=== PATIENT | female | born 1980 | race Caucasian/White ===

== ENCOUNTER → 2017-09-24 | Outpatient (CLI) | payer BC ==
[~2017-09-24] MED LIST: NO ROUTINE MEDS
== END ==
LOC: SPU 10:01
PROVIDERS: ATTEND Student in an Organized Health Care Education/Training Program
DX: C73 Malignant neoplasm of thyroid gland (principal); E89.0 Postprocedural hypothyroidism
CPT/HCPCS: 84439; 84443

== ENCOUNTER 2017-11-09 14:07 | Outpatient (RCR) | payer BC ==
--- NOTE | 2017-11-05 15:59 | RADIOLOGY IMAGING REPORT ---
FACILITY: [facility] PATIENT NAME: Mary Hardin : 1980 MR: [id number] V: [id number] EXAM DATE: ORDERING PHYSICIAN: MYRNA CALDWELL TECHNOLOGIST: Location: [facility] Patient: Mary Hardin : 1980 Visit/Account:[id number] Date of Sevice: 11/05/2017 EXAMINATION: Thyroid bed and neck ultrasound 11/05/2017 1:20 PM History: Thyroidectomy for papillary carcinoma. Iodine-131 radiation March 2017. COMPARISON STUDIES: None available FINDINGS: Thyroid bed: Right - negative Left - negative Largest cervical nodes: Right - level 1 lymph node 1.1 x 1.2 x 0.6 cm in level 2 lymph node 1.5 x 2.0 x 0.8 cm, each wi th a fatty hilus. Additional smaller lymph nodes elsewhere. Left - level 2 lymph node 1.9 x 1.1 x 1.6 cm with fatty hilus. 1.3 x 0.7 x 0.6 cm level 6 lymp h node. IMPRESSION: Multiple cervical lymph nodes without a pathologic appearance. Report Dictated By: Ric Ascencio MD at 11/05/2017 3:51 PM Report E-Signed By: Ric Ascencio MD at 11/05/2017 3:55 PM WSN:[email or web address]
== END 2017-11-11 13:27 | disposition home or self-care (01) ==
LOC: RAON 14:07
PROVIDERS: ATTEND Radiology Radiation Oncology
DX: Z85.850 Personal history of malignant neoplasm of thyroid (principal); E89.0 Postprocedural hypothyroidism; Q79.3 Gastroschisis; Z87.891 Personal history of nicotine dependence
CPT/HCPCS: 76536; 84432; 84439; 84443; 86800

== ENCOUNTER → 2017-12-01 | Outpatient (CLI) | payer BC | LOC: SPU 07:34 | PROVIDERS: ATTEND Student in an Organized Health Care Education/Training Program | DX: C73 Malignant neoplasm of thyroid gland (principal); E89.0 Postprocedural hypothyroidism | CPT/HCPCS: 84443 ==

== ENCOUNTER → 2018-10-07 | Outpatient (CLI) | payer BC | LOC: LAB 11:53 | PROVIDERS: ATTEND Student in an Organized Health Care Education/Training Program | DX: E89.0 Postprocedural hypothyroidism (principal) | CPT/HCPCS: 36415; 84439; 84443 ==

== ENCOUNTER 2018-11-30 15:24 | Observation (INO) | payer BC ==
[~2018-11-30] VITALS: Ht 175.3 cm; Wt 93.4 kg
[~2018-11-30 15:24] MED LIST changes: -BACI1CAP PO; -LEVO175T38 PO; -PREN-127 PO
[2018-11-30] MEDS ORDERED: PREN-127 PO (15:30)
[2018-11-30] MEDS ORDERED: LEVO175T38 PO (15:30)
[2018-11-30] MEDS ORDERED: NS(*) 0.9% 1000 ML BAG 1,000 ML IV ONE (15:38)
[2018-11-30] MEDS ORDERED: ONDANSETRON 4 MG/2 ML VIAL IVP ONE (15:40)
[2018-11-30 15:46] LABS: PLATELET COUNT, AUTOMATED 356 K/uL (150-450)
--- NOTE | 2018-11-30 15:51 | ER Report ---
History and Physical Time Seen By MD: 15:35 Hx. of Stated Complaint: EPIGASTRIC PAIN, NAUSEA HPI/ROS CHIEF COMPLAINT: Dental pain HISTORY OF PRESENT ILLNESS: 38-year-old female with intermittent abdominal pain primarily epigastric or right upper quadrant after eating meals comes and goes last 2 or 3 days becoming more frequent dull and aching occasionally sharp and stabbing no burning in her throat no cough fever chills no nausea vomiting no additional complaints noted patient seen by primary care notice some abnormal LFTs and center here for further evaluation patient still has her gallbladder and no surgical history REVIEW OF SYSTEMS: Respiratory: No cough, no dyspnea. Cardiovascular: No chest pain, no palpitations. Gastrointestinal: Abdominal pain right upper quadrant epigastric no vomiting Musculoskeletal: No back pain. Remainder of the 14 system rev: Yes Allergies: Coded Allergies: Cephalexin (Verified Allergy, Intermediate, RASH, 01/06/11) Home Meds Reported Medications Vits W-Ca,Fe,Fa(<1MG) ( VITAMINS) 1 Each Tablet, 1 EACH PO DAILY, TAB 11/30/18 Levothyroxine Sodium (SYNTHROID) 175 Mcg Tablet, 175 MCG PO QD EXCEPT SUN 11/30/18 Discontinued Reported Medications [No Routine Meds] No Conflict Check, 0 Refills 01/06/11 Discontinued Scripts Omeprazole (OMEPRAZOLE) 40 Mg Capsule.dr, 1 TAB PO QDAY for 30 Days, #30 CAP 0 Refills Prov:SHERRI MARKHAM DNP, DOCUMENT MANAGEMENT CONSULTANT-BC 11/30/18 Reviewed Nurses Notes: Yes Old Medical Records Reviewed: Yes Hx Smoking: No Hx Substance Use Disorder: No Hx Alcohol Use: Yes (DRINKS INFREQUENTLY) Constitutional Vital Sign - Last 24 Hours 11/30/18 15:27 Temp 98.1 Pulse 97 Resp 20 B/P (MAP) 152/102 Pulse Ox 90 O2 Delivery Room Air Physical Exam General Appearance: [The patient is alert, has no immediate need for airway protection and no current signs of toxicity.] [ ] Eyes: Pupils equal and round no injection. Respiratory: Chest is non tender, lungs are clear to auscultation. Cardiac: regular rate and rhythm [ ] Gastrointestinal: Abdomen mild to moderate tenderness to palpation right upper quadrant positive Ruvalcaba sign no rebound or guarding, bowel sounds otherwise unremarkable Musculoskeletal: Neck: Neck is supple and non tender. Extremities have full range of motion and are non tender. Skin: No rashes or lesions. [ ] DIFFERENTIAL DIAGNOSIS: After history and physical exam differential diagnosis was considered for cholelithiasis choledocholithiasis gallstone pancreatitis colitis Medical Decision Making Data Points Result Diagram: 11/30/18 1532 11/30/18 1532 Laboratory Hematology Test 11/30/18 15:32 11/30/18 16:20 Red Blood Count 5.60 M/uL (4.17-5.56) Mean Corpuscular Volume 86.9 fL (80.0-96.0) Mean Corpuscular Hemoglobin 29.8 pg (26.0-33.0) Mean Corpuscular Hemoglobin Concent 34.3 g/dL (32.0-36.0) Red Cell Distribution Width 14.0 % (11.5-14.5) Mean Platelet Volume 8.3 fL (7.2-11.1) Neutrophils (%) (Auto) 63.6 % (39.4-72.5) Lymphocytes (%) (Auto) 25.3 % (17.6-49.6) Monocytes (%) (Auto) 7.7 % (4.1-12.4) Eosinophils (%) (Auto) 1.4 % (0.4-6.7) Basophils (%) (Auto) 2.0 % (0.3-1.4) Nucleated RBC Relative Count (auto) 0.0 /100WBC Neutrophils # (Auto) 3.4 K/uL (2.0-7.4) Lymphocytes # (Auto) 1.4 K/uL (1.3-3.6) Monocytes # (Auto) 0.4 K/uL (0.3-1.0) Eosinophils # (Auto) 0.1 K/uL (0.0-0.5) Basophils # (Auto) 0.1 K/uL (0.0-0.1) Nucleated RBC Absolute Count (auto) 0.00 K/uL Prothrombin Time 12.9 seconds (12.0-14.4) Prothromb Time International Ratio 0.98 Activated Partial Thromboplast Time 30 seconds (23-35) Sodium Level 140 mmol/L (137-145) Potassium Level 3.9 mmol/L (3.5-5.0) Chloride Level 102 mmol/L (98-107) Carbon Dioxide Level 27 mmol/L (22-31) Blood Urea Nitrogen 7 mg/dl (7-18) Creatinine 0.60 mg/dl (0.52-1.04) Glomerular Filtration Rate Calc > 60.0 Random Glucose 126 mg/dl (75-110) Calcium Level 9.0 mg/dl (8.4-10.2) Total Bilirubin 2.4 mg/dl (0.2-1.3) Aspartate Amino Transf (AST/SGOT) 1722 U/L (0-35) Alanine Aminotransferase (ALT/SGPT) 2466 U/L (0-56) Alkaline Phosphatase 181 U/L (0-126) Total Protein 8.4 g/dl (6.3-8.2) Albumin 4.9 g/dl (3.5-5.0) Lipase 249 U/L (23-300) Serum Alcohol < 10 mg/dl Urine Color Yellow Urine Clarity Clear Urine pH 7.0 pH (4.8-9.5) Urine Specific [place] 1.003 Urine Protein Negative mg/dL (NEGATIVE) Urine Glucose (UA) Negative mg/dL (NEGATIVE) Urine Ketones Negative mg/dL (NEGATIVE) Urine Blood Negative (NEGATIVE) Urine Nitrite Negative (NEGATIVE) Urine Bilirubin Negative (NEGATIVE) Urine Urobilinogen Negative mg/dL (0.2-1.9) Urine Leukocyte Esterase Negative (NEGATIVE) Urine RBC 1 /HPF (0-2/HPF) Urine WBC 1 /HPF (0-5/HPF) Urine Squamous Epithelial Cells Many /LPF (</=FEW) Urine Bacteria Few /HPF (NONE-FEW) Urine Mucus None /HPF (NONE-FEW) Chemistry Test 11/30/18 15:32 11/30/18 16:20 White Blood Count 5.4 k/uL (4.5-11.0) Red Blood Count 5.60 M/uL (4.17-5.56) Hemoglobin 16.7 g/dL (12.0-16.0) Hematocrit 48.7 % (34.0-47.0) Mean Corpuscular Volume 86.9 fL (80.0-96.0) Mean Corpuscular Hemoglobin 29.8 pg (26.0-33.0) Mean Corpuscular Hemoglobin Concent 34.3 g/dL (32.0-36.0) Red Cell Distribution Width 14.0 % (11.5-14.5) Platelet Count 356 K/uL (150-450) Mean Platelet Volume 8.3 fL (7.2-11.1) Neutrophils (%) (Auto) 63.6 % (39.4-72.5) Lymphocytes (%) (Auto) 25.3 % (17.6-49.6) Monocytes (%) (Auto) 7.7 % (4.1-12.4) Eosinophils (%) (Auto) 1.4 % (0.4-6.7) Basophils (%) (Auto) 2.0 % (0.3-1.4) Nucleated RBC Relative Count (auto) 0.0 /100WBC Neutrophils # (Auto) 3.4 K/uL (2.0-7.4) Lymphocytes # (Auto) 1.4 K/uL (1.3-3.6) Monocytes # (Auto) 0.4 K/uL (0.3-1.0) Eosinophils # (Auto) 0.1 K/uL (0.0-0.5) Basophils # (Auto) 0.1 K/uL (0.0-0.1) Nucleated RBC Absolute Count (auto) 0.00 K/uL Prothrombin Time 12.9 seconds (12.0-14.4) Prothromb Time International Ratio 0.98 Activated Partial Thromboplast Time 30 seconds (23-35) Glomerular Filtration Rate Calc > 60.0 Calcium Level 9.0 mg/dl (8.4-10.2) Total Bilirubin 2.4 mg/dl (0.2-1.3) Aspartate Amino Transf (AST/SGOT) 1722 U/L (0-35) Alanine Aminotransferase (ALT/SGPT) 2466 U/L (0-56) Alkaline Phosphatase 181 U/L (0-126) Total Protein 8.4 g/dl (6.3-8.2) Albumin 4.9 g/dl (3.5-5.0) Lipase 249 U/L (23-300) Serum Alcohol < 10 mg/dl Urine Color Yellow Urine Clarity Clear Urine pH 7.0 pH (4.8-9.5) Urine Specific [place] 1.003 Urine Protein Negative mg/dL (NEGATIVE) Urine Glucose (UA) Negative mg/dL (NEGATIVE) Urine Ketones Negative mg/dL (NEGATIVE) Urine Blood Negative (NEGATIVE) Urine Nitrite Negative (NEGATIVE) Urine Bilirubin Negative (NEGATIVE) Urine Urobilinogen Negative mg/dL (0.2-1.9) Urine Leukocyte Esterase Negative (NEGATIVE) Urine RBC 1 /HPF (0-2/HPF) Urine WBC 1 /HPF (0-5/HPF) Urine Squamous Epithelial Cells Many /LPF (</=FEW) Urine Bacteria Few /HPF (NONE-FEW) Urine Mucus None /HPF (NONE-FEW) Coagulation Test 11/30/18 15:32 Prothrombin Time 12.9 seconds Prothromb Time International Ratio 0.98 Activated Partial Thromboplast Time 30 seconds Toxicology Test 11/30/18 15:32 Serum Alcohol < 10 mg/dl Urinalysis Test 11/30/18 16:20 Urine Color Yellow Urine Clarity Clear Urine pH 7.0 pH (4.8-9.5) Urine Specific [place] 1.003 Urine Protein Negative mg/dL (NEGATIVE) Urine Glucose (UA) Negative mg/dL (NEGATIVE) Urine Ketones Negative mg/dL (NEGATIVE) Urine Blood Negative (NEGATIVE) Urine Nitrite Negative (NEGATIVE) Urine Bilirubin Negative (NEGATIVE) Urine Urobilinogen Negative mg/dL (0.2-1.9) Urine Leukocyte Esterase Negative (NEGATIVE) Urine RBC 1 /HPF (0-2/HPF) Urine WBC 1 /HPF (0-5/HPF) Urine Squamous Epithelial Cells Many /LPF (</=FEW) Urine Bacteria Few /HPF (NONE-FEW) Urine Mucus None /HPF (NONE-FEW) ED Course/Re-evaluation ED Course ED course medical decision making 38-year-old female comes in with right upper quadrant epigastric pain LFTs are markedly high AST of 1700+ a LT of over 20/200 elevated bilirubin ultrasound does confirm a gallbladder full of stones and sludge however surgeon consulting was concerned about potential infectious etiology wants her admitted to general medicine for hepatitis workup and then potentially surgical intervention patient was admitted diagnosis abnormal liver function Decision to Disposition Date: Nov 30, 2018 Decision to Disposition Time: 16:50 Depart Departure Latest Vital Signs Vital Signs Date Time Temp Pulse Resp B/P (MAP) Pulse Ox O2 Delivery O2 Flow Rate FiO2 11/30/18 15:27 98.1 97 20 152/102 90 Room Air Impression: Primary Impression: Abnormal liver CT Condition: Improved Disposition: Admitted from ER Referrals: SHERRI MARKHAM DNP, DOCUMENT MANAGEMENT CONSULTANT-BC (PCP) DON JOSE MD Nov 30, 2018 15:51
[2018-11-30 15:53] LABS: INR 0.98
--- NOTE | 2018-11-30 16:10 | RADIOLOGY IMAGING REPORT ---
FACILITY: [facility] PATIENT NAME: Mary Farrell : 1980 MR: [id number] V: [id number] EXAM DATE: ORDERING PHYSICIAN: DON JOSE TECHNOLOGIST: Location: [facility] Patient: Mary Farrell : 1980 Visit/Account:[id number] Date of Sevice: 11/30/2018 Exam type: CHEST PA LAT History: pain Comparison: None. Findings: The lungs are free of acute effusions, infiltrates or edema. There is no evidence of a pneumothorax or pneumomediastinum. The cardiac silhouette is normal in size. The trachea is in midline. IMPRESSION: 1. No acute cardiopulmonary process is seen Report Dictated By: Faby Umana MD at 11/30/2018 4:02 PM Report E-Signed By: Faby Umana MD at 11/30/2018 4:03 PM WSN:[email or web address]
--- NOTE | 2018-11-30 16:39 | RADIOLOGY IMAGING REPORT ---
[place] [facility] [place]: Mary Farrell : 1980 MR: [id number] V: [id number] EXAM DATE: ORDERING PHYSICIAN: DON JOSE TECHNOLOGIST: Location: [facility] [place] Patient: aMry Farrell : 1980 Visit/Account:[id number] Date of Sevice: 11/30/2018 GALLBLADDER HISTORY: Intermittent pain since August COMPARISON: None. FINDINGS: Gallbladder: There multiple tiny layering stones within the gallbladder in addition to a 1.8 cm calcu merlyn in the gallbladder neck. Gallbladder wall measures approximately 2.6 mm. There is no demonstrat ion of pericholecystic fluid. The presence or absence of Ruvalcaba sign was not evaluated on the worksh eet Liver: Liver is mildly enlarged at 17.7 cm in length. There is increased echogenicity throughout the liver which can be seen with fatty infiltration or other infiltrative process. Common duct: Normal, 4.4 mm diameter. Pancreas: Not well seen due to overlying bowel gas Right kidney: Right kidney appears unremarkable measuring 13 cm in length Upper abdominal aorta and IVC: Patent. Ascites: None visualized. IMPRESSION: Gallbladder is mildly enlarged with increased echogenicity throughout. This can be seen with fatty i nfiltration or other infiltrative process There are multiple tiny layering gallstones in addition to a 1.8 cm stone at the gallbladder neck. T here is no demonstration of gallbladder wall thickening pericholecystic fluid or biliary ductal dilat ation. Report Dictated By: Faby Umana MD at 11/30/2018 4:32 PM Report E-Signed By: Faby Umana MD at 11/30/2018 4:35 PM WSN:[email or web address]
[2018-11-30 17:19] VITALS: BP 142/100
[2018-11-30] MEDS ORDERED: BACI1CAP PO (18:07)
[2018-11-30] MEDS ORDERED: MORPHINE 2 MG/ML SYR IVP PRN (18:10)
[2018-11-30] MEDS ORDERED: PROMETHAZINE 25 MG/ML 1 ML AMP IVP PRN (18:10)
--- NOTE | 2018-11-30 18:27 | History & Physical ---
History of Present Illness Chief Complaint Abdominal pain History of Present Illness 38yo female with PMHx significant for papillary thyroid cancer s/p thyroidectomy and radioactive iodine, mild pre-eclampsia with which she delivered . She reports several episodes of mid-epigastric abdominal pain with radiation to her mid-back starting in August 2018. All of the episodes would occur approximately 1-2 hours after eating and persist for approximately 4 hours. She would have mild nausea with no emesis. No diarrhea. No fevers or chills. She has not appreciated significant darkening of her urine. She has not appreciated any jaundice. The episode last evening started after eating fried chicken. It was rather severe for 2-3 hours and improved, but persisted for upwards of 12-14 hours. She was evaluated in the outpatient clinic and ER. She was found to have significantly elevated LFTs. Her GB ultrasound did show small stones/possible sludge, but no wall thickening or pericholecystic fluid or ductal dilation. Her pain has resolved at this point. She denies any known exposure to tainted or suspect food/fluids. Her family has not been ill. She and her family usually eat at home and infrequently eat at restaurants. She did take two doses of acetaminophen (1000mg) approximately 6 hours apart with the episode last evening. Otherwise, her only medication is thyroid replacement with levothyroxine. History Problems: (1) Thyroid cancer Status: Resolved (2) History of thyroidectomy Status: Resolved (3) Congenital gastroschisis Status: Resolved Comment: Repaired as Home Meds Reported Medications Bacillus Coagulans/Inulin (PROBIOTIC WITH PREBIOTIC CAPS) 1 Each Capsule, 1 EACH PO DAILY, CAPSULE 11/30/18 Vits W-Ca,Fe,Fa(<1MG) ( VITAMINS) 1 Each Tablet, 1 EACH PO DAILY, TAB 11/30/18 Levothyroxine Sodium (SYNTHROID) 175 Mcg Tablet, 175 MCG PO QD EXCEPT SUN 11/30/18 Discontinued Reported Medications [No Routine Meds] No Conflict Check, 0 Refills 01/06/11 Discontinued Scripts Omeprazole (OMEPRAZOLE) 40 Mg Capsule.dr, 1 TAB PO QDAY for 30 Days, #30 CAP 0 Refills Prov:SHERRI MARKHAM DNP, METAL GAUGE MAKER-BC 11/30/18 Allergies: Coded Allergies: Cephalexin (Verified Allergy, Intermediate, RASH, 01/06/11) Patient History: FH: diabetes mellitus FATHER FH: hypertension MOTHER FH: hypothyroidism FATHER MOTHER FH: lung cancer M. GRANDFATHER Pacemaker MOTHER Hx Smoking: Yes Smoking Status: Former Smoker Exposure to Second Hand Smoke?: No Caffeine Intake: Coffee Caffeine/Cups Per Day: 1 Hx Alcohol Use: Yes (DRINKS INFREQUENTLY) Alcohol Used: Wine Hx Substance Use Disorder: No Social Drug Use: Never Review of Systems Constitutional: No Fever, No Chills Respiratory: No Shortness of Breath Gastrointestinal: Nausea; No Vomiting, No Diarrhea, No Hematemesis, No Hematochezia, No Melena; Abdominal Pain Genitourinary: No Dysuria Musculoskeletal: Pain Exam Vital Signs Vital Signs Date Time Temp Pulse Resp B/P (MAP) Pulse Ox O2 Delivery O2 Flow Rate FiO2 11/30/18 18:04 91 11/30/18 17:19 98.4 94 19 142/100 (114) Room Air General Appearance: Alert, Awake, No Acute Distress Neuro: No Gross deficits Eyes: PERRLA, Other (sclera anicteric) ENT: Oropharynx Clear Neck: No Masses, Other (healed surgical scar at base of anterior neck) Cardiovascular: Regular Rate and Rhythm, No Edema, No JVD Respiratory: Clear to Auscultation Chest: No Tenderness GI: Abd Soft and Non-Tender (BS persent), Other (liver edge is not palpable/healed scar at umbilicus) : No CVA Tenderness Lymph: No Adenopathy Extremities: Warm, Perfused Integumentary: Skin Intact without Lesion / Mass Psych: Alert & Oriented X3 Medical Decision Making Data Points Result Diagram: 11/30/18 1532 11/30/18 1532 Item Value Date Time Lipase 249 U/L 11/30/18 1532 Albumin 4.9 g/dl 11/30/18 1532 Total Protein 8.4 g/dl H 11/30/18 1532 Alkaline Phosphatase 181 U/L H 11/30/18 1532 Alanine Aminotransferase (ALT/SGPT) 2466 U/L H 11/30/18 1532 Aspartate Amino Transf (AST/SGOT) 1722 U/L H 11/30/18 1532 Total Bilirubin 2.4 mg/dl H 11/30/18 1532 Calcium Level 9.0 mg/dl 11/30/18 1532 Lipase 250 U/L 11/30/18 1349 Amylase Level 36 U/L 11/30/18 1349 Albumin 4.7 g/dl 11/30/18 1349 Total Protein 7.7 g/dl 11/30/18 1349 Alkaline Phosphatase 170 U/L H 11/30/18 1349 Alanine Aminotransferase (ALT/SGPT) 2508 U/L H 11/30/18 1349 Aspartate Amino Transf (AST/SGOT) 1814 U/L H 11/30/18 1349 Total Bilirubin 2.3 mg/dl H 11/30/18 1349 Calcium Level 9.5 mg/dl 11/30/18 1349 Serum Alcohol < 10 mg/dl 11/30/18 1532 Urine Color Yellow 11/30/18 1620 Urine Clarity Clear 11/30/18 1620 Urine pH 7.0 pH 11/30/18 1620 Urine Specific [place] 1.003 11/30/18 1620 Urine Protein Negative mg/dL 11/30/18 1620 Urine Glucose (UA) Negative mg/dL 11/30/18 1620 Urine Ketones Negative mg/dL 11/30/18 1620 Urine Blood Negative 11/30/18 1620 Urine Nitrite Negative 11/30/18 1620 Urine Bilirubin Negative 11/30/18 1620 Urine Urobilinogen Negative mg/dL 11/30/18 1620 Urine RBC 1 /HPF 11/30/18 1620 Urine Leukocyte Esterase Negative 11/30/18 1620 Urine WBC 1 /HPF 11/30/18 1620 Urine Squamous Epithelial Cells Many /LPF H 11/30/18 1620 Urine Bacteria Few /HPF 11/30/18 1620 Urine Mucus None /HPF 11/30/18 1620 Prothrombin Time 12.9 seconds 11/30/18 1532 Prothromb Time International Ratio 0.98 11/30/18 1532 Activated Partial Thromboplast Time 30 seconds 11/30/18 1532 White Blood Count 4.6 k/uL 11/30/18 1349 Hemoglobin 16.4 g/dL H 11/30/18 1349 Hematocrit 47.7 % H 11/30/18 1349 Platelet Count 335 K/uL 11/30/18 1349 EKG / Imaging Imaging PATIENT NAME: Mary Farrell : 1980 MR: [id number] V: [id number] EXAM DATE: ORDERING PHYSICIAN: DON JOSE TECHNOLOGIST: Location: [facility] Patient: Mary Farrell : 1980 Visit/Account:[id number] Date of Sevice: 11/30/2018 GALLBLADDER HISTORY: Intermittent pain since August COMPARISON: None. FINDINGS: Gallbladder: There multiple tiny layering stones within the gallbladder in addition to a 1.8 cm calculus in the gallbladder neck. Gallbladder wall measures approximately 2.6 mm. There is no demonstration of pericholecystic fluid. The presence or absence of Ruvalcaba sign was not evaluated on the worksheet Liver: Liver is mildly enlarged at 17.7 cm in length. There is increased echogenicity throughout the liver which can be seen with fatty infiltration or other infiltrative process. Common duct: Normal, 4.4 mm diameter. Pancreas: Not well seen due to overlying bowel gas Right kidney: Right kidney appears unremarkable measuring 13 cm in length Upper abdominal aorta and IVC: Patent. Ascites: None visualized. IMPRESSION: Gallbladder is mildly enlarged with increased echogenicity throughout. This can be seen with fatty infiltration or other infiltrative process There are multiple tiny layering gallstones in addition to a 1.8 cm stone at the gallbladder neck. There is no demonstration of gallbladder wall thickening pericholecystic fluid or biliary ductal dilatation. Report Dictated By: Faby Umana MD at 11/30/2018 4:32 PM Report E-Signed By: Faby Umana MD at 11/30/2018 4:35 PM WSN:[email or web address] PATIENT NAME: Mary Farrell : 1980 MR: [id number] V: [id number] EXAM DATE: [id number] ORDERING PHYSICIAN: DON JOSE TECHNOLOGIST: Location: [facility] Patient: Mary Farrell : 1980 Visit/Account:[id number] Date of Sevice: 11/30/2018 Exam type: CHEST PA LAT History: pain Comparison: None. Findings: The lungs are free of acute effusions, infiltrates or edema. There is no evidence of a pneumothorax or pneumomediastinum. The cardiac silhouette is normal in size. The trachea is in midline. IMPRESSION: 1. No acute cardiopulmonary process is seen Report Dictated By: Faby Umana MD at 11/30/2018 4:02 PM Report E-Signed By: Faby Umana MD at 11/30/2018 4:03 PM WSN:MIKI Assessment and Plan Problems: (1) Abdominal pain Status: Acute Assessment & Plan: Her pain sounds like it may be biliary colic in origin. She does have cholelithiasis, but no strong evidence for cholecystitis. Lipase is normal. Her liver function tests do have some mild cholestatic changes with the mildly elevated alkaline phosphatase and bilirubin, but AST and ALT are significantly elevated out of proportion with usual pattern. Will admit for further monitoring and evaluation. Will have Dr. Serra see. Will check viral hepatitis studies as well as acetaminophen level (doubtful). Will also check LFTs again in AM. If she has significant improvement overnight, this would make the possibility of acute hepatitis much lower. May need to consider MR CP/possibly HIDA scan. (2) Elevated liver function tests Status: Acute Assessment & Plan: Several possibilities exist. See above for evaluation. Copies to: SHERRI MARKHAM DNP, METAL GAUGE MAKER-BC ; Venous Thromboembolism Antithrombotics Is Pt On Any Antithrombotics?: No (elevated LFTs/possibility of surgical procedure) Exam Sepsis Risk: No Definite Risk DARBY BARRIOS MD Nov 30, 2018 18:27
[2018-11-30] MEDS: NS(*) 0.9% 1000 ML BAG 1,000 ML IV PRN (18:49)
[2018-11-30 19:09] VITALS: BP 127/91
[2018-12-01] MEDS: NS(*) 0.9% 1000 ML BAG 1,000 ML IV PRN (00:46)
[2018-12-01 06:28] LABS: PLATELET COUNT, AUTOMATED 293 K/uL (150-450)
[2018-12-01 06:29] LABS: INR 1.04
[2018-12-01 06:30] VITALS: BP 123/93
[2018-12-01 09:19] VITALS: Ht 175.3 cm; Wt 93.4 kg
--- NOTE | 2018-12-01 10:29 | General Surgery Consultation ---
History of Present Illness Requesting Physician Dr Sigifredo Perea Reason for Consult elevated LFTs Chief Complaint intermittent biliary colic History of Present Illness 38 yo female with hx biliary colic over the past several months admitted from PCP office yesterday due to elevated LFTs. She had an episode of biliary colic the evening of 11/29/18 which was worse than prior episodes thus she presented the next am for office evaluation. Per PCP eval her exam was benign, so she was sent for outpt lab evaluation. When her LFTs were abnormal she was recommended for inpt admission. She has had no further abdominal pain since 11/29/18 evening. Pt has been tolerating her diet without NV, no FCS, no dark urine, no acholic stools. No unusual travel or ill contacts. No hx hepatitis. It should be noted she is her 4 month old son. History Unable To Obtain Past Medical: Home Meds Reported Medications Bacillus Coagulans/Inulin (PROBIOTIC WITH PREBIOTIC CAPS) 1 Each Capsule, 1 EACH PO DAILY, CAPSULE 11/30/18 Vits W-Ca,Fe,Fa(<1MG) ( VITAMINS) 1 Each Tablet, 1 EACH PO DAILY, TAB 11/30/18 Levothyroxine Sodium (SYNTHROID) 175 Mcg Tablet, 175 MCG PO QD EXCEPT SUN 11/30/18 Discontinued Reported Medications [No Routine Meds] No Conflict Check, 0 Refills 01/06/11 Discontinued Scripts Omeprazole (OMEPRAZOLE) 40 Mg Capsule., 1 TAB PO QDAY for 30 Days, #30 CAP 0 Refills Prov:SHERRI MARKHAM DNP, FINANCIAL PLANNING ADVISER-BC 11/30/18 Allergies: Coded Allergies: cephalexin (Verified Allergy, Intermediate, RASH, 01/06/11) Family History: FH: diabetes mellitus FATHER FH: hypertension MOTHER FH: hypothyroidism FATHER MOTHER FH: lung cancer M. GRANDFATHER Pacemaker MOTHER Review of Systems All Systems Reviewed/Normal: Yes, Except as Noted Gastrointestinal: Other (see HPI) Exam Vital Signs Vital Signs Date Time Temp Pulse Resp B/P (MAP) Pulse Ox O2 Delivery O2 Flow Rate FiO2 12/01/18 10:44 93 12/01/18 10:44 98.8 65 20 123/89 (100) Room Air General Appearance: Alert, Awake, No Acute Distress, Afebrile Neuro: No Gross deficits Cardiovascular: Normal Rhythm & Peripheral Pulses, Regular Rate and Rhythm Respiratory: No Respiratory Distress, Clear to Auscultation GI: Abd Soft and Non-Tender, Other (negative Ruvalcaba's sign, well healed midline scar without hernia) Extremities: Soft and Non Tender Integumentary: Skin Intact without Lesion / Mass Psych: Alert & Oriented X3, Appropriate Mood & Affect Medical Decision Making Data Points Result Diagram: 12/01/18 0542 12/01/18 0542 EKG / Imaging Monitor Interpretation: Normal Sinus Rhythm Pre-Admit Course Medical Record Review: Yes Assessment and Plan Problems: (1) Elevated liver function tests Status: Acute Assessment & Plan: No clinical or radiographic evidence of acute cholecystitis though LFTs have an obstructive pattern without dilated extra hepatic biliary system. Acute hepatitis panel pending. Recommend MRCP. She may require transfer for consideration of ERCP. Discussed with GI MD Dr Morton. (2) Congenital gastroschisis Status: Chronic Assessment & Plan: Her prior extensive repair may preclude a laparoscopic approach. (3) Lactating mother Status: Acute Assessment & Plan: Pt wants to return to breast feeding as soon as possible. She has declined narcotics since admit. Time Spent: > 30 min Critical Time Spent: 1st 30-74 Minutes Venous Thromboembolism VTE Risk Physician Assess for VTE Risk: Yes Patient's VTE Risk: Low VTE Diagnostic Test 2 Days Prior to Admit: No Antithrombotics Is Pt On Any Antithrombotics?: No (elevated LFTs/possibility of surgical procedure) RADHA DIETZ MD Dec 01, 2018 10:29
[2018-12-01 10:44] VITALS: BP 123/89
[2018-12-01] MEDS ORDERED: GADOBENATE 529MG/1ML 15ML VIAL IVP ONE (11:49)
[2018-12-01] MEDS ORDERED: NS(*) 0.9% 50 ML BAG 50 ML ONE (11:49)
--- NOTE | 2018-12-01 13:33 | Medical Nutrition Therapy ---
Nutrition Anthropometrics Height (Inches): 69.00 Height (Calculated Centimeters: 175.590908 Weight (Pounds): 206 Weight (Calculated Kilograms): 93.440 BMI: 30.4 Tomás Nutrition Score: Adequate Tomás Nutrition Risk Score: 21 Dietary Referral Nutrition Risk Factors: Nutrition Risk Comment: Physical Findings Physical Appearance: Obese BMI 30-39 Skin Appearance Skin Appearance: Edema Edema Location Modifier: Edema Location: Type of Edema: Degree of Edema: Gastrointestinal Symptoms GI Symtoms: Appetite Changes Tube Present: Bowel Sounds: Recent Bowel Pattern: Stool Characteristics: Nutritional Diagnosis Nutritional Risk Acuity 2: Head/Neck/GI Cancer Past Medical History: Hx of thyroid cancer, thyroidectomy, congential gastrochisis. Nutritional Acuity: 2-Moderate Nutrition Diagnosis: Increased Nutrient Needs Nutrition Etiology: Physiological Causes Nutrition Problem/Etiology/Sym: Increased nutrient needs related to physiological causes as evidenced by hx of thyroid cancer, and dx of elevated liver function tests. Energy Requirement: 2210 (MSJ, 1.1 TEF, 1.2 AF) Adjusted Energy Requirement Re: 1960 (-250kcal) Protein Requirement: 75 (0.8g AA/kg of BW) Fluid Requirement: 2210 (1mL/kcal) Diet Type: Clear Liquids Nutrition Intervention: Incr diet as tolerated Nutrition Monitoring & Eval Nutritional Goals Comment: Offer clear liquid supplement RD Patient Assessment Time: [address] Assessment Type: RD Screen Patient Nutrition Acuity: 2-Moderate Follow Up Date: Dec 04, 2018 Nutritional Comment: 12/01: Pt admitted with abdominal pain and elevated liver function tests. Pt has a hx of thyroid cancer, thyroidectomy, and congenital gastrochisis. Pt has decreased creatinine (0.5) levels and increased bilirubin (3.6), AST (817), ALT (1701), and alkaline phosphatase (144). Pt is on a clear liquid diet day 1. -JASWANT THOMPSON Dec 01, 2018 09:34
--- NOTE | 2018-12-01 13:54 | RADIOLOGY IMAGING REPORT ---
FACILITY: [facility] PATIENT NAME: Mary Farrell : 1980 MR: [id number] V: [id number] EXAM DATE: ORDERING PHYSICIAN: RUDY PORTER TECHNOLOGIST: Location: [facility] [place] Patient: Mary Farrell : 1980 Visit/Account:[id number] Date of Sevice: 12/01/2018 MR ABDOMEN MRCP W & W/O CONTRAST HISTORY: elevated LFT, BILI TECHNIQUE: Multiplanar multisequence magnetic resonance imaging of the abdomen with and without intr avenous contrast including magnetic resonance cholangiopancreatography (MRCP). CONTRAST: 15 COMPARISON: Gallbladder ultrasound November 30, 2018 FINDINGS: Visualized lung bases: Grossly unremarkable. Liver: Negative Gallbladder: There are numerous gallstones present. There is dilatation of the neck of the gallbladd er and what appears to be obstruction of the cystic duct secondary to mass effect by 1.7 cm stone ent ering the gallbladder neck. Bile ducts: There is motion artifact present however there appear to be multiple tiny stones in the distal common bile duct. The right left hepatic ducts common hepatic duct, bile duct do not appear d ilated Spleen: Negative. Adrenal glands: Negative. Pancreas: Negative. Kidneys: Negative. Vessels/spaces/nodes: No bulky adenopathy or ascites. Visualized GI: Grossly unremarkable. Bones/soft tissues: Unremarkable. IMPRESSION: There is motion artifact present however there appear to be multiple tiny stones in the distal common bile duct although the common bile duct, common hepatic duct and right left hepatic duct do not appe ar dilated There are numerous tiny gallstones present in addition to 1.7 cm stone entering the gallbladder neck. There is dilatation of the gallbladder neck but appears to be obstruction of the cystic duct second katty to mass effect from this large gallstone. Results were called to RUDY PORTER at 12/01/2018 1:48 PM. Report Dictated By: Faby Umana MD at 12/01/2018 1:16 PM Report E-Signed By: Faby Umana MD at 12/01/2018 1:49 PM WSN:[id number]
--- NOTE | 2018-12-01 14:20 | General Surgery Progress Note ---
Physical Exam Vital Signs Date Time Temp Pulse Resp B/P (MAP) Pulse Ox O2 Delivery O2 Flow Rate FiO2 12/01/18 10:44 93 12/01/18 10:44 98.8 65 20 123/89 (100) Room Air Intake and Output 12/01/18 06:59 Intake Total 1000 ml Balance 1000 ml IV Total 1000 ml # Voids 1 Result Diagram: 12/01/18 0542 12/01/18 0542 Monitor Interpretation: Normal Sinus Rhythm Assessment and Plan Problems: (1) Elevated liver function tests Status: Acute Assessment & Plan: No clinical or radiographic evidence of acute cholecystitis though LFTs have an obstructive pattern without dilated extra hepatic biliary system. Acute hepatitis panel pending. Recommend MRCP. She may require transfer for consideration of ERCP. Discussed with GI MD Dr Morton. MRCP consistent with stones and sludge in distal CBD. Reviewed case with Dr Morton who concurs pt needs an ERCP. Pt will transfer to [facility] via [facility]. (2) Congenital gastroschisis Status: Chronic Assessment & Plan: Her prior extensive repair may preclude a laparoscopic approach. (3) Lactating mother Status: Acute Assessment & Plan: Pt wants to return to breast feeding as soon as possible. She has declined narcotics since admit. Exam Sepsis Risk: No Definite Risk RADHA DIETZ MD Dec 01, 2018 14:20
--- NOTE | 2018-12-01 15:31 | Hospitalist Depart ---
Discharge Summary Reason for Hosp/Final Diag: (1) Abdominal pain Status: Acute Hospital Course & Plan: Her pain sounds like it may be biliary colic in origin. She does have cholelithiasis, but no strong evidence for cholecystitis. Lipase is normal. Her liver function tests had mild cholestatic changes with the mildly elevated alkaline phosphatase and bilirubin, but AST and ALT are significantly elevated out of proportion with usual pattern. Will check viral hepatitis which are pending at time of transfer. MRCP demonstrated small gall stones in distal CBD and again demonstrated samll stones with one large 1.7cm stone in the neck of the gall bladder. Dr Mei from surgery discussed with GI at [facility] and ERCP was recommended followed by cholecystectomy. (2) Elevated liver function tests Status: Acute Hospital Course & Plan: Some fatty infiltration on US and MRCP, however this is likely secondary to biliary stones Departure Weight (Pounds): 206 Result Diagram: 12/01/18 0542 12/01/18 0542 Condition: Improved Discharge: Another Hospital Discharge Code Status: Full Code Discharge Instructions Home Meds Reported Medications Bacillus Coagulans/Inulin (PROBIOTIC WITH PREBIOTIC CAPS) 1 Each Capsule, 1 EACH PO DAILY, CAPSULE 11/30/18 Vits W-Ca,Fe,Fa(<1MG) ( VITAMINS) 1 Each Tablet, 1 EACH PO DAILY, TAB 11/30/18 Levothyroxine Sodium (SYNTHROID) 175 Mcg Tablet, 175 MCG PO QD EXCEPT SUN 11/30/18 Discontinued Reported Medications [No Routine Meds] No Conflict Check, 0 Refills 01/06/11 Discontinued Scripts Omeprazole (OMEPRAZOLE) 40 Mg Capsule., 1 TAB PO QDAY for 30 Days, #30 CAP 0 Refills Prov:SHERRI MARKHAM DNP, TREE TRIMMER HELPER-BC 11/30/18 Diet: Regular (currently NPO pending ) Activity: As Tolerated Venous Thromboembolism Antithrombotics Is Pt On Any Antithrombotics?: No (elevated LFTs/possibility of surgical proce dure) RUDY HAYWARD DO Dec 01, 2018 15:31
[2018-12-02] MEDS ORDERED: INFLUENZA VIRUS VAC 0.5ML SYR IM ONLY ONE (09:00)
== END 2018-12-01 15:17 | disposition short-term general hospital (02) ==
LOC: ER 15:34 → INTOOBSV 17:00 → MED 17:00
PROVIDERS: ADMIT Internal Medicine; ATTEND Internal Medicine
DX: R93.2 Abnormal findings on diagnostic imaging of liver and biliary tract (principal); R79.89 Other specified abnormal findings of blood chemistry; Q79.3 Gastroschisis; Q68.0 Congenital deformity of sternocleidomastoid muscle
CPT/HCPCS: 36415; 71046; 74183; 76705; 80320; 80329; 81001; 82248; 83690; 84703; 85025; 85610; 85730; 86705; 86706; 86708; 86709; 86803; 96360; 99285; A9577; G0378; J7030; J7050; 82040; 82247; 82310; 82374; 82435; 82565; 82947; 84075; 84132; 84155; 84295; 84450; 84460; 84520

== ENCOUNTER → 2018-11-30 | Outpatient (CLI) | payer BC ==
[~2018-11-30] MED LIST changes: +BACI1CAP PO; +LEVO175T38 PO; +OMEP40CA48 PO; +PREN-127 PO
[2018-11-30 14:06] LABS: PLATELET COUNT, AUTOMATED 335 K/uL (150-450)
== END ==
LOC: LAB 13:37
PROVIDERS: ATTEND Nurse Practitioner Primary Care
DX: R10.9 Unspecified abdominal pain (principal)
CPT/HCPCS: 36415; 81001; 82040; 82150; 82247; 82310; 82374; 82435; 82565; 82947; 83690; 84075; 84132; 84155; 84295; 84450; 84460; 84520; 85025